=== PATIENT | male | born 1940 | race Caucasian/White ===

== ENCOUNTER → 2016-12-17 | Outpatient (REF) | payer MEDICARE ==
[~2016-12-17] MED LIST: /ADVA50050 IN; /GLYB5TA OR; /WARF2TA OR; ACET500C PO; ALBU2TAB INH; BISA10SU2 RE; CEFT250T OR; COLC1TAB13 PO; COUM2TAB10 PO; FEBU40TA PO; FLON0.05; GLYB5TA PO; INSUDET SC; INSULANT SC; INSULIN SQ; LEVO125T3 PO; LEVO150T9 PO; METF500T4 OR; MILKSUS OR; OMEP40CA2 PO; PAIN325T OR; PERC10TA17 PO; PRIL40CA OR; SIMV40TA2 OR; ZOCO40TA PO; coumadin; ocean nasal spray; omega 3 OR
[2016-12-17 12:55] LABS: ALBUMIN 3.5 GM/DL (3.2-5.2); ALBUMIN/GLOBULIN RATIO 0.9 (1.00-1.93); BILIRUBIN,TOTAL 0.6 MG/DL (0.2-1.0); CALCIUM LEVEL 9.2 MG/DL (8.8-10.2); CREATININE FOR GFR 2.03 MG/DL (0.70-1.30); GLOMERULAR FILTRATION RATE 34.1 (>42); POTASSIUM SERUM 4.9 MEQ/L (3.5-5.1); TOTAL PROTEIN 7.4 GM/DL (6.4-8.2)
== END ==
LOC: M SFHCPLAZ 09:53
PROVIDERS: ATTEND Internal Medicine
DX: E11.9 Type 2 diabetes mellitus without complications (principal); E78.00 Pure hypercholesterolemia, unspecified

== ENCOUNTER → 2017-02-07 | Outpatient (REF) | payer MEDICARE | LOC: M LAB REF 16:58 | PROVIDERS: ATTEND Internal Medicine Pulmonary Disease | DX: R05 Cough (principal) ==

== ENCOUNTER → 2017-02-22 | Outpatient (CLI) | payer MEDICARE ==
--- NOTE | 2017-02-22 13:12 | REP ---
Clinical: Chronic cough. Comparison: 01/09/2007. Findings: Progressive advanced COPD and emphysematous changes are appreciated in comparison to prior examination. Findings include moderate diffuse bronchiectasis, scattered scarring and interstitial changes, and diffuse primarily subpleural bullae varying in size from a small subcentimeter changes to a moderate to large bulla in the lateral right lower lobe measuring roughly 7.8 x 3.8 x 4.4 cm. No acute focal consolidation is appreciated a few scattered non solid ground-glass nodules measuring up to 6 mm likely represent chronic changes. No solid nodule or mass lesion identified. Atherosclerotic changes to the thoracic aorta and coronary arteries noted without aortic aneurysm or cardiomegaly. Subcentimeter mediastinal and hilar lymph nodes may be chronic/reactive in nature. No pleural effusion/reaction or pneumothorax. Surrounding musculoskeletal demonstrate age-related changes. Upper abdomen demonstrates atrophic left kidney and cholelithiasis. Impression: 1. Moderate to early advanced COPD and emphysematous changes with scattered fibrosis/scarring and bullae. 2. Small scattered non solid ground-glass densities up to approximately 6 mm are nonspecific and likely chronic. 3. No acute consolidation or significant mass lesion appreciated. No pleural effusion/reaction or pneumothorax. 4. Atherosclerotic changes of the aorta and coronary arteries. 5. Upper abdomen demonstrates atrophic left kidney and cholelithiasis. Signed by Jose Fung MD 02/22/2017 01:03 P
== END ==
LOC: M RAD 12:40
PROVIDERS: ATTEND Internal Medicine Pulmonary Disease
DX: R05 Cough (principal)

== ENCOUNTER → 2017-03-16 | Outpatient (REF) | payer MEDICARE ==
[2017-03-16 11:56] LABS: MEAN CORPUSCULAR HEMOGLOBIN 28.3 pg (27.0-33.0); MEAN CORPUSCULAR HGB CONC 31.6 g/dl (32.0-36.5); MEAN CORPUSCULAR VOLUME 89.5 fl (80.0-96.0); RED CELL DISTRIBUTION WIDTH 16.5 % (11.5-14.5); WHITE BLOOD COUNT 22.6 K/mm3 (4.0-10.0)
[2017-03-16 12:52] LABS: ALBUMIN 3.8 GM/DL (3.2-5.2); ALBUMIN/GLOBULIN RATIO 0.95 (1.00-1.93); BILIRUBIN,TOTAL 0.7 MG/DL (0.2-1.0); CREATININE FOR GFR 1.96 MG/DL (0.70-1.30); GLOMERULAR FILTRATION RATE 35.5 (>42); POTASSIUM SERUM 5.1 MEQ/L (3.5-5.1); TOTAL PROTEIN 7.8 GM/DL (6.4-8.2)
== END ==
LOC: M SFHCPLAZ 07:55
PROVIDERS: ATTEND Internal Medicine
DX: Z79.01 Long term (current) use of anticoagulants (principal); E11.9 Type 2 diabetes mellitus without complications; N18.3 Chronic kidney disease, stage 3 (moderate); E03.9 Hypothyroidism, unspecified

== ENCOUNTER → 2017-08-01 | Outpatient (REF) | payer MEDICARE ==
[~2017-08-01] MED LIST changes: -COUM2TAB10 PO; +COUM2TAB22 PO; -LEVO125T3 PO; +LEVO125T4 PO; -PERC10TA17 PO; +PERC10TA26 PO
[2017-08-01 13:46] LABS: BASO # 0.1 10^3/uL (0.0-0.2); BASO % 0.5 % (0.0-1.0); EOS # 1.2 10^3/uL (0.0-0.50); IMMATURE GRANULOCYTE % 2.5 % (0-0); LYMPH # 1.4 10^3/uL (1.5-4.5); LYMPH % 7.1 % (24.0-44.0); MEAN CORPUSCULAR HEMOGLOBIN 28.1 pg (27.0-33.0); MEAN CORPUSCULAR HGB CONC 31.7 g/dl (32.0-36.5); MEAN CORPUSCULAR VOLUME 88.5 fl (80.0-96.0); MONO # 0.5 10^3/uL (0.0-0.8); MONO % 2.5 % (0.0-5.0); NEUTROPHILS % 81.4 % (36.0-66.0); PLATELET COUNT, AUTOMATED 225 10^3/uL (150-450); RED CELL DISTRIBUTION WIDTH 17.2 % (11.5-14.5); WHITE BLOOD COUNT 19.6 10^3/uL (4.0-10.0)
[2017-08-01 14:01] LABS: ALBUMIN 3.5 GM/DL (3.2-5.2); ALBUMIN/GLOBULIN RATIO 0.95 (1.00-1.93); BILIRUBIN,TOTAL 0.5 MG/DL (0.2-1.0); CALCIUM LEVEL 8.7 MG/DL (8.8-10.2); CREATININE FOR GFR 2.05 MG/DL (0.70-1.30); GLOMERULAR FILTRATION RATE 33.6 (>42); POTASSIUM SERUM 4.5 MEQ/L (3.5-5.1); TOTAL PROTEIN 7.2 GM/DL (6.4-8.2)
== END ==
LOC: M SFHCPLAZ 09:44
PROVIDERS: ATTEND Internal Medicine
DX: N18.3 Chronic kidney disease, stage 3 (moderate) (principal); E11.9 Type 2 diabetes mellitus without complications

== ENCOUNTER → 2017-08-30 | Outpatient (CLI) | payer MEDICARE ==
--- NOTE | 2017-08-30 14:06 | REP ---
Clinical: Pain and lobular emphysema. Comparison: 02/22/2017. Findings: Diffuse chronic emphysematous changes and interstitial disease is again appreciated and remains stable. Previously identified small scattered non solid ground-glass opacities are essentially unchanged. There is a new 14 mm mass in the anterior left upper lobe (images 58 - 61) which is concerning for neoplasm. No further acute consolidation, significant nodule or mass lesion identified. Mediastinal and hilar lymph nodes remain unchanged. Atherosclerotic changes to the aorta and coronary arteries noted without aneurysm or cardiomegaly. No pericardial effusion. No pleural effusion. No pneumothorax. Musculoskeletal structures demonstrate degenerative changes without focal osseous abnormality. Upper abdomen demonstrates atrophic left kidney, normal bilateral adrenal glands, and evidence for prior cholecystectomy. Impression: 1. New 14 mm mass in the anterior left upper lobe is consistent with malignancy until proven otherwise. Consider PET-CT or tissue sampling as well as follow-up examination in 3 months if necessary. 2. Diffuse chronic stable interstitial and emphysematous changes. Signed by Jose Fung MD 08/30/2017 01:58 P
== END ==
LOC: M RAD 13:04
PROVIDERS: ATTEND Internal Medicine Pulmonary Disease
DX: R91.8 Other nonspecific abnormal finding of lung field (principal); J43.8 Other emphysema

== ENCOUNTER → 2017-12-06 | Outpatient (CLI) | payer MEDICARE | LOC: M RAD 13:17 | DX: R91.8 Other nonspecific abnormal finding of lung field (principal) | CPT/HCPCS: 71250 ==

== ENCOUNTER → 2018-03-21 | Outpatient (REF) | payer MEDICARE ==
[2018-03-21 11:38] LABS: ALBUMIN 3.3 GM/DL (3.2-5.2); ALKALINE PHOSPHATASE 71 U/L (45-117); ALT/SGPT 10 U/L (12-78); ANION GAP 13 MEQ/L (8-16); AST/SGOT 10 U/L (7-37); BILIRUBIN,TOTAL 0.6 MG/DL (0.2-1.0); BLOOD UREA NITROGEN 25 MG/DL (7-18); CALCIUM LEVEL 8.3 MG/DL (8.8-10.2); CARBON DIOXIDE LEVEL 26 MEQ/L (21-32); CHLORIDE LEVEL 102 MEQ/L (98-107); CHOLESTEROL LEVEL 142 MG/DL (<200); CHOLESTEROL RISK RATIO 6.454 (<5); CREATININE FOR GFR 1.87 MG/DL (0.70-1.30); GLOMERULAR FILTRATION RATE 37.4 (>42); GLUCOSE, FASTING 106 MG/DL (70-100); HDL CHOLESTEROL 22 MG/DL (>40); NON-HDL-C 120 MG/DL; POTASSIUM SERUM 4.5 MEQ/L (3.5-5.1); SODIUM LEVEL 141 MEQ/L (136-145); TOTAL PROTEIN 7.4 GM/DL (6.4-8.2); TRIGLYCERIDES LEVEL 195 MG/DL (<150)
[2018-03-21 11:56] LABS: MAU/CREAT RATIO 97.9 MCG/MG (0.0-30.0)
[2018-03-21 18:10] LABS: ESTIMATED AVERAGE GLUCOSE 197 MG/DL (60-110); HEMOGLOBIN A1c 8.5 %
== END ==
LOC: M SFHCPLAZ 07:48
DX: N18.3 Chronic kidney disease, stage 3 (moderate) (principal); E11.9 Type 2 diabetes mellitus without complications; E78.00 Pure hypercholesterolemia, unspecified
CPT/HCPCS: 80053

== ENCOUNTER → 2018-05-03 | Outpatient (REF) | payer MEDICARE ==
[2018-05-03 11:32] LABS: HEMATOCRIT 48.7 % (42.0-52.0); HEMOGLOBIN 15.7 g/dl (13.5-17.5); MEAN CORPUSCULAR HEMOGLOBIN 28.1 pg (27.0-33.0); MEAN CORPUSCULAR HGB CONC 32.2 g/dl (32.0-36.5); MEAN CORPUSCULAR VOLUME 87.3 fl (80.0-96.0); PLATELET COUNT, AUTOMATED 213 10^3/uL (150-450); RED BLOOD COUNT 5.58 10^6/uL (4.30-6.10); RED CELL DISTRIBUTION WIDTH 17.4 % (11.5-14.5); WHITE BLOOD COUNT 20.1 10^3/uL (4.0-10.0)
[2018-05-03 11:59] LABS: PTH INTACT 43.2 PG/ML (18.5-88.0)
[2018-05-03 12:00] LABS: ALBUMIN/GLOBULIN RATIO 0.81 (1.00-1.93); ALKALINE PHOSPHATASE 65 U/L (45-117); ALT/SGPT 15 U/L (12-78); ANION GAP 9 MEQ/L (8-16); AST/SGOT 9 U/L (7-37); BILIRUBIN,TOTAL 0.6 MG/DL (0.2-1.0); BLOOD UREA NITROGEN 26 MG/DL (7-18); CALCIUM LEVEL 8.5 MG/DL (8.8-10.2); CARBON DIOXIDE LEVEL 29 MEQ/L (21-32); CHLORIDE LEVEL 101 MEQ/L (98-107); CHOLESTEROL LEVEL 147 MG/DL (<200); CHOLESTEROL RISK RATIO 5.444 (<5); CREATININE FOR GFR 1.54 MG/DL (0.70-1.30); GLOMERULAR FILTRATION RATE 46.7 (>42); GLUCOSE, FASTING 190 MG/DL (70-100); HDL CHOLESTEROL 27 MG/DL (>40); LDL CHOLESTEROL 83.2 MG/DL (<100); NON-HDL-C 120 MG/DL; POTASSIUM SERUM 4.7 MEQ/L (3.5-5.1); SODIUM LEVEL 139 MEQ/L (136-145); TOTAL PROTEIN 6.7 GM/DL (6.4-8.2); TRIGLYCERIDES LEVEL 184 MG/DL (<150); URIC ACID 2.8 MG/DL (3.5-7.2)
[2018-05-03 12:09] LABS: MAU/CREAT RATIO 102.3 MCG/MG (0.0-30.0)
== END ==
LOC: M SFHCPLAZ 08:57
DX: N18.3 Chronic kidney disease, stage 3 (moderate) (principal); D72.828 Other elevated white blood cell count; E78.00 Pure hypercholesterolemia, unspecified; E03.9 Hypothyroidism, unspecified; E11.8 Type 2 diabetes mellitus with unspecified complications; M10.9 Gout, unspecified; M25.532 Pain in left wrist
CPT/HCPCS: 84443

== ENCOUNTER → 2018-05-18 | Outpatient (CLI) | payer MEDICARE | LOC: M WUC 09:06 | DX: R91.8 Other nonspecific abnormal finding of lung field (principal) | CPT/HCPCS: 71046 ==

== ENCOUNTER 2018-05-31 11:05 | Inpatient (IN) | payer MEDICARE ==
[2018-05-31] MEDS: methylPREDNISolone INJ 125 MG/2 ML VIAL (J2930) IV (11:48)
[2018-05-31 11:59] LABS: HEMATOCRIT 46.8 % (42.0-52.0); HEMOGLOBIN 14.4 g/dl (13.5-17.5); MEAN CORPUSCULAR HEMOGLOBIN 27.7 pg (27.0-33.0); MEAN CORPUSCULAR HGB CONC 30.8 g/dl (32.0-36.5); PLATELET COUNT, AUTOMATED 222 10^3/uL (150-450); RED CELL DISTRIBUTION WIDTH 18.1 % (11.5-14.5); WHITE BLOOD COUNT 20.4 10^3/uL (4.0-10.0)
[2018-05-31 12:06] LABS: ADD MANUAL DIFFER YES; DIFF SLIDE NUMBER 205; POS COUNT POS FLAG; POSITIVE MORPH POS FLAG
[2018-05-31 12:12] LABS: ABG BASE EXCESS 1.6 (-2.0-2.0); ABG HCO3 27.6 MEQ/L (22.0-26.0); ABG O2 SATURATION 98.9 % (95.0-99.0); ABG PARTIAL PRESSURE O2 134.3 mmHg (75.0-100.0); ABG STANDARD HCO3 25.9 MEQ/L (22.0-26.0); ABG TOTAL CO2 29.1 MEQ/L (23.0-31.0); ABG pH (ARTERIAL) 7.369 UNITS (7.350-7.450)
[2018-05-31 12:26] LABS: ATYPICAL LYMPH 1 % (0-5); BANDS 5 % (< 11); BASOPHILS 1 % (0-4); EOSINOPHILS 1 % (0-5); LYMPHOCYTES 4 % (16-52); METAMYELOCYTES 1 % (0-0); MONOCYTES 2 % (0-8); NEUTROPHILS 85 % (35-75)
[2018-05-31 12:27] LABS: ANION GAP 8 MEQ/L (8-16); BLOOD UREA NITROGEN 51 MG/DL (7-18); CALCIUM LEVEL 8.8 MG/DL (8.8-10.2); CARBON DIOXIDE LEVEL 33 MEQ/L (21-32); CHLORIDE LEVEL 103 MEQ/L (98-107); CPK CREATINE PHOSPHOKINASE 32 U/L (39-308); GLOMERULAR FILTRATION RATE 34.5 (>42); GLUCOSE, FASTING 169 MG/DL (70-100); POTASSIUM SERUM 4.7 MEQ/L (3.5-5.1); SODIUM LEVEL 144 MEQ/L (136-145); TROPONIN I 0.07 NG/ML (< 0.10)
[2018-05-31 12:28] LABS: PLATELET ESTIMATE NORMAL (NORMAL); POLYCHROMASIA 1+
[2018-05-31 12:29] LABS: LACTIC ACID SEPSIS PROTOCOL 1.8 MMOL/L (0.4-2.0)
[2018-05-31 12:30] LABS: CK-MB VALUE MASS 1.8 NG/ML (<3.6); MB/CK RELATIVE INDEX 5.62 (< OR =4); NT-PRO BNP 34171 PG/ML (<450)
[2018-05-31 12:40] LABS: INR 4.93; PROTHROMBIN TIME 47.2 SECONDS (12.1-14.4)
[2018-05-31] MEDS: FUROSEMIDE 40 MG/4 ML VIAL (J1940) IV (13:23)
[2018-05-31] MEDS ORDERED: ONDANSETRON 4MG/2ML VIAL (J2405) IV (13:30)
[2018-05-31] MEDS ORDERED: BISACODYL 5 MG TAB PO (13:30)
[2018-05-31] MEDS: IPRATROPIUM 0.5MG/ALBUTEROL 2.5MG INH SOL UD 3ML (DUONEB)(J7620) NEB (14:00)
[2018-05-31] MEDS ORDERED: ACETAMINOPHEN TAB 650MG DOSE (2X325MG) PO (14:30)
[2018-05-31] MEDS ORDERED: GLUCOSE 4 GM CHEW TABLET PO (14:45)
[2018-05-31] MEDS ORDERED: IPRATROPIUM 0.5MG/ALBUTEROL 2.5MG INH SOL UD 3ML (DUONEB)(J7620) NEB (14:45)
[2018-05-31] MEDS ORDERED: GLUCAGON FOR INJ 1 MG VIAL (J1610) SC (14:45)
[2018-05-31] MEDS ORDERED: DEXTROSE 50% 50 ML SYRINGE IV (14:45)
[2018-05-31] MEDS ORDERED: FUROSEMIDE 40 MG TAB PO (17:00)
[2018-05-31 17:59] LABS: BEDSIDE GLUCOSE 331 MG/DL (83-110)
[2018-05-31] MEDS: HumaLOG INSULIN (NovoLOG) PER UNIT SC ×2 (18:10→21:00)
[2018-05-31 18:57] LABS: CPK CREATINE PHOSPHOKINASE 30 U/L (39-308); TROPONIN I 0.06 NG/ML (< 0.10)
[2018-05-31 18:58] LABS: CK-MB VALUE MASS 1.7 NG/ML (<3.6); MB/CK RELATIVE INDEX 5.66 (< OR =4)
[2018-05-31] MEDS: ALBUTEROL SULFATE 2.5 MG/0.5 ML INH NEB SOLN NEB (20:00)
[2018-05-31] MEDS: METOPROLOL SUCC *XL* 12.5MG PER 1/2 TAB (TopROL *XL*) PO ×2 (20:37→21:00)
[2018-05-31 20:41] LABS: BEDSIDE GLUCOSE 246 MG/DL (83-110)
[2018-05-31] MEDS: SYMBICORT 80/4.5MCG INHALER 6GM INH (20:58)
[2018-05-31] MEDS: SENOKOT S TAB PO (21:36)
[2018-05-31] MEDS: SIMVASTATIN 40 MG TAB PO (21:36)
[2018-05-31] MEDS: LEVEMIR (INSULIN DETEMIR) 1 UNITS/0.01ML SC (21:37)
[2018-06-01] MEDS: ALBUTEROL SULFATE 2.5 MG/0.5 ML INH NEB SOLN NEB ×4 (02:00→20:00)
[2018-06-01 02:32] LABS: CPK CREATINE PHOSPHOKINASE 25 U/L (39-308); TROPONIN I 0.06 NG/ML (< 0.10)
[2018-06-01 02:33] LABS: CK-MB VALUE MASS 1.5 NG/ML (<3.6)
[2018-06-01] MEDS: LEVOTHYROXINE 125MCG TABLET (0.125MG) PO (05:37)
[2018-06-01 05:46] LABS: BASO # 0.1 10^3/uL (0.0-0.2); BASO % 0.8 % (0.0-1.0); HEMATOCRIT 44.4 % (42.0-52.0); HEMOGLOBIN 13.8 g/dl (13.5-17.5); LYMPH # 0.6 10^3/uL (1.5-4.5); LYMPH % 3.7 % (24.0-44.0); MEAN CORPUSCULAR HEMOGLOBIN 27.7 pg (27.0-33.0); MEAN CORPUSCULAR HGB CONC 31.1 g/dl (32.0-36.5); MONO # 0.5 10^3/uL (0.0-0.8); NEUTROPHILS # 13.7 10^3/uL (1.8-7.7); NEUTROPHILS % 87.5 % (36.0-66.0); PLATELET COUNT, AUTOMATED 210 10^3/uL (150-450); RED BLOOD COUNT 4.99 10^6/uL (4.30-6.10); RED CELL DISTRIBUTION WIDTH 17.4 % (11.5-14.5); WHITE BLOOD COUNT 15.7 10^3/uL (4.0-10.0)
[2018-06-01 05:57] LABS: INR 4.16; PROTHROMBIN TIME 41.2 SECONDS (12.1-14.4)
[2018-06-01 06:16] LABS: ABG BASE EXCESS 2.2 (-2.0-2.0); ABG HCO3 29.7 MEQ/L (22.0-26.0); ABG O2 SATURATION 98.5 % (95.0-99.0); ABG PARTIAL PRESSURE CO2 58.6 mmHg (35.0-45.0); ABG PARTIAL PRESSURE O2 126.5 mmHg (75.0-100.0); ABG STANDARD HCO3 26.5 MEQ/L (22.0-26.0); ABG TOTAL CO2 31.5 MEQ/L (23.0-31.0); ABG pH (ARTERIAL) 7.323 UNITS (7.350-7.450); ALBUMIN 2.7 GM/DL (3.2-5.2); ALBUMIN/GLOBULIN RATIO 0.66 (1.00-1.93); ALKALINE PHOSPHATASE 84 U/L (45-117); ALT/SGPT 29 U/L (12-78); ANION GAP 8 MEQ/L (8-16); AST/SGOT 14 U/L (7-37); BILIRUBIN,TOTAL 0.5 MG/DL (0.2-1.0); BLOOD UREA NITROGEN 59 MG/DL (7-18); CALCIUM LEVEL 8.3 MG/DL (8.8-10.2); CARBON DIOXIDE LEVEL 32 MEQ/L (21-32); CHLORIDE LEVEL 101 MEQ/L (98-107); CREATININE FOR GFR 2.27 MG/DL (0.70-1.30); GLOMERULAR FILTRATION RATE 29.8 (>42); GLUCOSE, FASTING 258 MG/DL (70-100); MAGNESIUM LEVEL 2.4 MG/DL (1.8-2.4); POTASSIUM SERUM 4.8 MEQ/L (3.5-5.1); SODIUM LEVEL 141 MEQ/L (136-145); TOTAL PROTEIN 6.8 GM/DL (6.4-8.2)
[2018-06-01] MEDS: SYMBICORT 80/4.5MCG INHALER 6GM INH ×2 (07:59→21:52)
[2018-06-01] MEDS: HumaLOG INSULIN (NovoLOG) PER UNIT SC ×4 (08:06→21:35)
[2018-06-01] MEDS: FUROSEMIDE 40 MG/4 ML VIAL (J1940) IV ×2 (10:08→16:46)
[2018-06-01] MEDS: ALLOPURINOL 300 MG TAB PO (10:09)
[2018-06-01] MEDS: OMEPRAZOLE 20 MG CAP PO (10:09)
[2018-06-01] MEDS: SENOKOT S TAB PO ×2 (10:09→21:00)
[2018-06-01] MEDS ORDERED: PILL CRUSHER/CUTTER 1 EACH XX (10:30)
[2018-06-01 11:29] LABS: CPK CREATINE PHOSPHOKINASE 31 U/L (39-308); TROPONIN I 0.06 NG/ML (< 0.10)
[2018-06-01 11:54] LABS: CK-MB VALUE MASS 1.9 NG/ML (<3.6); MB/CK RELATIVE INDEX 6.12 (< OR =4)
[2018-06-01 11:57] LABS: BEDSIDE GLUCOSE 117 MG/DL (83-110)
[2018-06-01] MEDS: SLF 3 ML SYR IV ×3 (14:22→21:35)
[2018-06-01] MEDS: METOPROLOL TART 12.5 MG PER 1/2 TAB PO (14:26)
[2018-06-01] MEDS: AZITHROMYCIN INJ 500 MG, VIAL MATE ADAPTER 1 EACH in D5W 250 ML IV (16:46)
[2018-06-01] MEDS ORDERED: LEVALBUTEROL 1.25 MG/0.5 ML CONCENTRATE NEB INH (17:00)
[2018-06-01 17:05] LABS: BEDSIDE GLUCOSE 77 MG/DL (83-110)
[2018-06-01] MEDS: cefTRIAXone SOD 1 GM in D5W MINI-BAG PLUS 50 ML IV (18:30)
[2018-06-01 20:08] LABS: BEDSIDE GLUCOSE 251 MG/DL (83-110)
[2018-06-01] MEDS: LEVEMIR (INSULIN DETEMIR) 1 UNITS/0.01ML SC (21:35)
[2018-06-01] MEDS: SIMVASTATIN 40 MG TAB PO (21:35)
[2018-06-01] MEDS: DIGOXIN INJ 0.5 MG/2 ML AMP (J1160) IV (23:12)
[2018-06-01] MEDS: methylPREDNISolone INJ 125 MG/2 ML VIAL (J2930) IV (23:49)
[2018-06-02] MEDS: ALBUTEROL SULFATE 2.5 MG/0.5 ML INH NEB SOLN NEB ×4 (01:29→20:00)
[2018-06-02] MEDS: cefTRIAXone SOD 1 GM in D5W MINI-BAG PLUS 50 ML IV ×2 (05:06→17:23)
[2018-06-02] MEDS: DIGOXIN INJ 0.5 MG/2 ML AMP (J1160) IV ×2 (05:07→13:02)
[2018-06-02] MEDS: LEVOTHYROXINE 125MCG TABLET (0.125MG) PO (05:07)
[2018-06-02] MEDS: SLF 3 ML SYR IV ×3 (05:14→22:38)
[2018-06-02 05:55] LABS: BASO # 0.1 10^3/uL (0.0-0.2); BASO % 0.5 % (0.0-1.0); EOS % 0.1 % (0.0-3.0); HEMATOCRIT 42.9 % (42.0-52.0); HEMOGLOBIN 13.2 g/dl (13.5-17.5); IMMATURE GRANULOCYTE % 3.4 % (0-3.0); LYMPH # 0.4 10^3/uL (1.5-4.5); LYMPH % 1.6 % (24.0-44.0); MEAN CORPUSCULAR HEMOGLOBIN 27.3 pg (27.0-33.0); MEAN CORPUSCULAR HGB CONC 30.8 g/dl (32.0-36.5); MEAN CORPUSCULAR VOLUME 88.8 fl (80.0-96.0); MONO # 0.2 10^3/uL (0.0-0.8); MONO % 0.9 % (0.0-5.0); NEUTROPHILS # 24.2 10^3/uL (1.8-7.7); NEUTROPHILS % 93.5 % (36.0-66.0); PLATELET COUNT, AUTOMATED 170 10^3/uL (150-450); RED BLOOD COUNT 4.83 10^6/uL (4.30-6.10); RED CELL DISTRIBUTION WIDTH 17.2 % (11.5-14.5); WHITE BLOOD COUNT 25.9 10^3/uL (4.0-10.0)
[2018-06-02 06:06] LABS: INR 3.09; PROTHROMBIN TIME 32.6 SECONDS (12.1-14.4)
[2018-06-02 06:07] LABS: ANION GAP 7 MEQ/L (8-16); BLOOD UREA NITROGEN 61 MG/DL (7-18); CALCIUM LEVEL 7.8 MG/DL (8.8-10.2); CARBON DIOXIDE LEVEL 34 MEQ/L (21-32); CHLORIDE LEVEL 96 MEQ/L (98-107); GLOMERULAR FILTRATION RATE 29.3 (>42); GLUCOSE, FASTING 221 MG/DL (70-100); POTASSIUM SERUM 4.4 MEQ/L (3.5-5.1); SODIUM LEVEL 137 MEQ/L (136-145)
[2018-06-02 07:46] LABS: C REACTIVE PROTEIN QUANTITATIV 1.95 MG/DL (0.00-0.30)
[2018-06-02] MEDS: SYMBICORT 80/4.5MCG INHALER 6GM INH ×2 (08:00→21:52)
[2018-06-02] MEDS: SENOKOT S TAB PO ×2 (08:10→20:18)
[2018-06-02] MEDS: ALLOPURINOL 300 MG TAB PO (08:10)
[2018-06-02] MEDS: FUROSEMIDE 40 MG/4 ML VIAL (J1940) IV ×2 (08:10→17:22)
[2018-06-02] MEDS: OMEPRAZOLE 20 MG CAP PO (08:10)
[2018-06-02] MEDS: HumaLOG INSULIN (NovoLOG) PER UNIT SC ×4 (08:11→20:43)
[2018-06-02 12:35] LABS: BEDSIDE GLUCOSE 381 MG/DL (83-110)
[2018-06-02] MEDS: methylPREDNISolone INJ 125 MG/2 ML VIAL (J2930) IV ×2 (13:02→23:43)
[2018-06-02 14:55] LABS: ERYTHROCYTE SEDIMENTATION RATE 6 mm/hr (0-20)
[2018-06-02] MEDS: AZITHROMYCIN INJ 500 MG, VIAL MATE ADAPTER 1 EACH in D5W 250 ML IV (17:22)
[2018-06-02] MEDS: WARFARIN SOD 2 MG TAB PO (17:23)
[2018-06-02] MEDS: SIMVASTATIN 40 MG TAB PO (20:18)
[2018-06-02] MEDS: LEVEMIR (INSULIN DETEMIR) 1 UNITS/0.01ML SC (20:42)
[2018-06-02 21:20] LABS: BEDSIDE GLUCOSE 355 MG/DL (83-110)
[2018-06-02] MEDS: DOBUTamine HCL 500,000 MCG in APPROPRIATE DILUENT 1 EA IV (23:44)
[2018-06-03] MEDS: ALBUTEROL SULFATE 2.5 MG/0.5 ML INH NEB SOLN NEB ×4 (01:14→20:52)
[2018-06-03] MEDS: cefTRIAXone SOD 1 GM in D5W MINI-BAG PLUS 50 ML IV ×2 (04:18→17:08)
[2018-06-03] MEDS: SLF 3 ML SYR IV ×3 (05:05→22:14)
[2018-06-03] MEDS: LEVOTHYROXINE 125MCG TABLET (0.125MG) PO (05:07)
[2018-06-03 06:16] LABS: BASO # 0.1 10^3/uL (0.0-0.2); BASO % 0.3 % (0.0-1.0); HEMATOCRIT 40.4 % (42.0-52.0); IMMATURE GRANULOCYTE % 3.8 % (0-3.0); LYMPH # 0.3 10^3/uL (1.5-4.5); LYMPH % 1.5 % (24.0-44.0); MEAN CORPUSCULAR HEMOGLOBIN 27.5 pg (27.0-33.0); MEAN CORPUSCULAR HGB CONC 32.2 g/dl (32.0-36.5); MEAN CORPUSCULAR VOLUME 85.6 fl (80.0-96.0); MONO # 0.2 10^3/uL (0.0-0.8); MONO % 0.9 % (0.0-5.0); NEUTROPHILS # 19.9 10^3/uL (1.8-7.7); NEUTROPHILS % 93.5 % (36.0-66.0); PLATELET COUNT, AUTOMATED 158 10^3/uL (150-450); RED BLOOD COUNT 4.72 10^6/uL (4.30-6.10); RED CELL DISTRIBUTION WIDTH 16.3 % (11.5-14.5); WHITE BLOOD COUNT 21.4 10^3/uL (4.0-10.0)
[2018-06-03] MEDS: ISOSORBIDE DIN (ISORDIL) 10 MG TAB PO (06:26)
[2018-06-03 06:30] LABS: INR 3.28; PROTHROMBIN TIME 34.1 SECONDS (12.1-14.4)
[2018-06-03 06:33] LABS: ANION GAP 7 MEQ/L (8-16); BLOOD UREA NITROGEN 56 MG/DL (7-18); CALCIUM LEVEL 7.6 MG/DL (8.8-10.2); CARBON DIOXIDE LEVEL 37 MEQ/L (21-32); CHLORIDE LEVEL 93 MEQ/L (98-107); CREATININE FOR GFR 1.85 MG/DL (0.70-1.30); GLOMERULAR FILTRATION RATE 37.7 (>42); GLUCOSE, FASTING 259 MG/DL (70-100); SODIUM LEVEL 137 MEQ/L (136-145)
[2018-06-03] MEDS: HumaLOG INSULIN (NovoLOG) PER UNIT SC ×4 (09:03→22:13)
[2018-06-03] MEDS: SPIRONOLACTONE 12.5MG PER 1/2 TABLET PO (09:04)
[2018-06-03] MEDS: ALLOPURINOL 300 MG TAB PO (09:04)
[2018-06-03] MEDS: OMEPRAZOLE 20 MG CAP PO (09:04)
[2018-06-03] MEDS: SENOKOT S TAB PO ×2 (09:05→21:59)
[2018-06-03] MEDS: **hydrALAZINE** 10 MG TAB PO (09:05)
[2018-06-03] MEDS: SYMBICORT 80/4.5MCG INHALER 6GM INH ×2 (11:50→20:51)
[2018-06-03 12:18] LABS: BEDSIDE GLUCOSE 257 MG/DL (83-110)
[2018-06-03] MEDS: methylPREDNISolone INJ 125 MG/2 ML VIAL (J2930) IV (12:34)
[2018-06-03] MEDS: BISOPROLOL FUMARATE 1.25MG PER 1/4 TABLET PO (12:44)
[2018-06-03] MEDS: ENTRESTO 24-26MG TABLET (SACUBITRIL/VALSARTAN) PO ×2 (12:44→21:59)
[2018-06-03] MEDS: AZITHROMYCIN INJ 500 MG, VIAL MATE ADAPTER 1 EACH in D5W 250 ML IV (16:01)
[2018-06-03 17:14] LABS: MAGNESIUM LEVEL 2.1 MG/DL (1.8-2.4)
[2018-06-03 17:20] LABS: BEDSIDE GLUCOSE 317 MG/DL (83-110)
[2018-06-03] MEDS: WARFARIN SOD 2 MG TAB PO (17:32)
[2018-06-03] MEDS: SIMVASTATIN 40 MG TAB PO (21:59)
[2018-06-03] MEDS: LEVEMIR (INSULIN DETEMIR) 1 UNITS/0.01ML SC (22:05)
[2018-06-03 22:23] LABS: BEDSIDE GLUCOSE 378 MG/DL (83-110)
[2018-06-03 22:43] LABS: CHOLESTEROL LEVEL 109 MG/DL (<200); CHOLESTEROL RISK RATIO 3.758 (<5); HDL CHOLESTEROL 29 MG/DL (>40); LDL CHOLESTEROL 39.6 MG/DL (<100); NON-HDL-C 80 MG/DL; TRIGLYCERIDES LEVEL 202 MG/DL (<150)
[2018-06-04] MEDS: ALBUTEROL SULFATE 2.5 MG/0.5 ML INH NEB SOLN NEB ×4 (02:08→20:00)
[2018-06-04] MEDS: cefTRIAXone SOD 1 GM in D5W MINI-BAG PLUS 50 ML IV ×2 (04:34→17:52)
[2018-06-04] MEDS: LEVOTHYROXINE 125MCG TABLET (0.125MG) PO (05:19)
[2018-06-04] MEDS: SLF 3 ML SYR IV ×3 (05:20→21:28)
[2018-06-04 05:45] LABS: BASO # 0.1 10^3/uL (0.0-0.2); BASO % 0.6 % (0.0-1.0); EOS % 0.1 % (0.0-3.0); HEMOGLOBIN 13.2 g/dl (13.5-17.5); IMMATURE GRANULOCYTE % 4.1 % (0-3.0); LYMPH # 0.7 10^3/uL (1.5-4.5); LYMPH % 3.6 % (24.0-44.0); MEAN CORPUSCULAR HEMOGLOBIN 27.6 pg (27.0-33.0); MEAN CORPUSCULAR HGB CONC 31.4 g/dl (32.0-36.5); MEAN CORPUSCULAR VOLUME 87.7 fl (80.0-96.0); MONO # 0.5 10^3/uL (0.0-0.8); MONO % 2.6 % (0.0-5.0); NEUTROPHILS # 18.2 10^3/uL (1.8-7.7); PLATELET COUNT, AUTOMATED 152 10^3/uL (150-450); RED BLOOD COUNT 4.79 10^6/uL (4.30-6.10); RED CELL DISTRIBUTION WIDTH 16.7 % (11.5-14.5); WHITE BLOOD COUNT 20.5 10^3/uL (4.0-10.0)
[2018-06-04 05:58] LABS: ANION GAP 7 MEQ/L (8-16); BLOOD UREA NITROGEN 58 MG/DL (7-18); CALCIUM LEVEL 7.9 MG/DL (8.8-10.2); CARBON DIOXIDE LEVEL 35 MEQ/L (21-32); CHLORIDE LEVEL 93 MEQ/L (98-107); CREATININE FOR GFR 1.76 MG/DL (0.70-1.30); GLUCOSE, FASTING 284 MG/DL (70-100); POTASSIUM SERUM 3.9 MEQ/L (3.5-5.1); SODIUM LEVEL 135 MEQ/L (136-145)
[2018-06-04] MEDS: HumaLOG INSULIN (NovoLOG) PER UNIT SC ×4 (08:15→21:27)
[2018-06-04] MEDS: ENTRESTO 24-26MG TABLET (SACUBITRIL/VALSARTAN) PO ×2 (08:16→21:26)
[2018-06-04] MEDS: OMEPRAZOLE 20 MG CAP PO (08:16)
[2018-06-04] MEDS: BISOPROLOL FUMARATE 1.25MG PER 1/4 TABLET PO (08:16)
[2018-06-04] MEDS: ALLOPURINOL 300 MG TAB PO (08:16)
[2018-06-04] MEDS: SENOKOT S TAB PO ×2 (08:16→21:26)
[2018-06-04] MEDS: SYMBICORT 80/4.5MCG INHALER 6GM INH ×2 (08:32→20:31)
[2018-06-04 12:16] LABS: INR 3.63
[2018-06-04 12:40] LABS: BEDSIDE GLUCOSE 269 MG/DL (83-110)
[2018-06-04] MEDS: AZITHROMYCIN INJ 500 MG, VIAL MATE ADAPTER 1 EACH in D5W 250 ML IV (17:00)
[2018-06-04 17:18] LABS: BEDSIDE GLUCOSE 198 MG/DL (83-110)
[2018-06-04] MEDS: SIMVASTATIN 40 MG TAB PO (21:26)
[2018-06-04] MEDS: LEVEMIR (INSULIN DETEMIR) 1 UNITS/0.01ML SC (21:27)
[2018-06-04 22:51] LABS: BEDSIDE GLUCOSE 315 MG/DL (83-110)
[2018-06-05] MEDS: ALBUTEROL SULFATE 2.5 MG/0.5 ML INH NEB SOLN NEB ×4 (02:00→20:00)
[2018-06-05] MEDS: cefTRIAXone SOD 1 GM in D5W MINI-BAG PLUS 50 ML IV ×2 (04:34→17:43)
[2018-06-05] MEDS: LEVOTHYROXINE 125MCG TABLET (0.125MG) PO (05:49)
[2018-06-05] MEDS: SLF 3 ML SYR IV ×3 (06:02→21:54)
[2018-06-05 06:14] LABS: BASO # 0.1 10^3/uL (0.0-0.2); BASO % 0.6 % (0.0-1.0); EOS # 1.1 10^3/uL (0.0-0.50); EOS % 5.6 % (0.0-3.0); HEMATOCRIT 43.9 % (42.0-52.0); HEMOGLOBIN 13.8 g/dl (13.5-17.5); IMMATURE GRANULOCYTE % 4.8 % (0-3.0); LYMPH # 1.2 10^3/uL (1.5-4.5); LYMPH % 6.1 % (24.0-44.0); MEAN CORPUSCULAR HEMOGLOBIN 27.4 pg (27.0-33.0); MEAN CORPUSCULAR HGB CONC 31.4 g/dl (32.0-36.5); MEAN CORPUSCULAR VOLUME 87.1 fl (80.0-96.0); MONO # 0.4 10^3/uL (0.0-0.8); MONO % 2.2 % (0.0-5.0); NEUTROPHILS # 15.6 10^3/uL (1.8-7.7); NEUTROPHILS % 80.7 % (36.0-66.0); PLATELET COUNT, AUTOMATED 143 10^3/uL (150-450); RED BLOOD COUNT 5.04 10^6/uL (4.30-6.10); RED CELL DISTRIBUTION WIDTH 17.2 % (11.5-14.5); WHITE BLOOD COUNT 19.3 10^3/uL (4.0-10.0)
[2018-06-05 06:17] LABS: INR 3.51
[2018-06-05 06:24] LABS: ANION GAP 3 MEQ/L (8-16); BLOOD UREA NITROGEN 57 MG/DL (7-18); CALCIUM LEVEL 7.9 MG/DL (8.8-10.2); CARBON DIOXIDE LEVEL 38 MEQ/L (21-32); CHLORIDE LEVEL 95 MEQ/L (98-107); CREATININE FOR GFR 1.56 MG/DL (0.70-1.30); GLOMERULAR FILTRATION RATE 45.9 (>42); GLUCOSE, FASTING 235 MG/DL (70-100); POTASSIUM SERUM 3.8 MEQ/L (3.5-5.1); SODIUM LEVEL 136 MEQ/L (136-145)
[2018-06-05 06:36] LABS: NT-PRO BNP 4353 PG/ML (<450)
[2018-06-05] MEDS: HumaLOG INSULIN (NovoLOG) PER UNIT SC ×4 (08:14→21:00)
[2018-06-05] MEDS: OMEPRAZOLE 20 MG CAP PO (08:14)
[2018-06-05] MEDS: SENOKOT S TAB PO ×2 (08:15→21:54)
[2018-06-05] MEDS: BISOPROLOL FUMARATE 1.25MG PER 1/4 TABLET PO (08:15)
[2018-06-05] MEDS: ENTRESTO 24-26MG TABLET (SACUBITRIL/VALSARTAN) PO ×2 (08:15→21:54)
[2018-06-05] MEDS: ALLOPURINOL 300 MG TAB PO (08:15)
[2018-06-05] MEDS: SYMBICORT 80/4.5MCG INHALER 6GM INH ×2 (10:09→20:14)
[2018-06-05 11:46] LABS: BEDSIDE GLUCOSE 237 MG/DL (83-110)
[2018-06-05] MEDS: AZITHROMYCIN INJ 500 MG, VIAL MATE ADAPTER 1 EACH in D5W 250 ML IV (16:32)
[2018-06-05 16:53] LABS: BEDSIDE GLUCOSE 248 MG/DL (83-110)
[2018-06-05 20:40] LABS: BEDSIDE GLUCOSE 218 MG/DL (83-110)
[2018-06-05] MEDS: SIMVASTATIN 40 MG TAB PO (21:54)
[2018-06-05] MEDS: LEVEMIR (INSULIN DETEMIR) 1 UNITS/0.01ML SC (21:54)
[2018-06-06] MEDS: ALBUTEROL SULFATE 2.5 MG/0.5 ML INH NEB SOLN NEB ×4 (02:00→20:00)
[2018-06-06] MEDS: LEVOTHYROXINE 125MCG TABLET (0.125MG) PO (05:06)
[2018-06-06] MEDS: cefTRIAXone SOD 1 GM in D5W MINI-BAG PLUS 50 ML IV (05:06)
[2018-06-06] MEDS: SLF 3 ML SYR IV ×3 (05:09→20:28)
[2018-06-06 05:41] LABS: BASO # 0.2 10^3/uL (0.0-0.2); BASO % 0.8 % (0.0-1.0); EOS # 1.4 10^3/uL (0.0-0.50); EOS % 6.4 % (0.0-3.0); HEMATOCRIT 43.7 % (42.0-52.0); HEMOGLOBIN 13.6 g/dl (13.5-17.5); IMMATURE GRANULOCYTE % 4.8 % (0-3.0); LYMPH # 1.1 10^3/uL (1.5-4.5); LYMPH % 5.2 % (24.0-44.0); MEAN CORPUSCULAR HEMOGLOBIN 27.7 pg (27.0-33.0); MEAN CORPUSCULAR HGB CONC 31.1 g/dl (32.0-36.5); MONO # 0.5 10^3/uL (0.0-0.8); MONO % 2.3 % (0.0-5.0); NEUTROPHILS # 17.5 10^3/uL (1.8-7.7); NEUTROPHILS % 80.5 % (36.0-66.0); PLATELET COUNT, AUTOMATED 124 10^3/uL (150-450); RED BLOOD COUNT 4.91 10^6/uL (4.30-6.10); RED CELL DISTRIBUTION WIDTH 17.3 % (11.5-14.5); WHITE BLOOD COUNT 21.8 10^3/uL (4.0-10.0)
[2018-06-06 05:51] LABS: INR 2.74; PROTHROMBIN TIME 29.6 SECONDS (12.1-14.4)
[2018-06-06 06:12] LABS: ANION GAP 5 MEQ/L (8-16); BLOOD UREA NITROGEN 55 MG/DL (7-18); CARBON DIOXIDE LEVEL 36 MEQ/L (21-32); CHLORIDE LEVEL 96 MEQ/L (98-107); CREATININE FOR GFR 1.42 MG/DL (0.70-1.30); GLOMERULAR FILTRATION RATE 51.2 (>42); GLUCOSE, FASTING 171 MG/DL (70-100); SODIUM LEVEL 137 MEQ/L (136-145)
[2018-06-06] MEDS: SYMBICORT 80/4.5MCG INHALER 6GM INH ×2 (07:09→20:14)
[2018-06-06] MEDS: SENOKOT S TAB PO ×2 (08:03→20:27)
[2018-06-06] MEDS: HumaLOG INSULIN (NovoLOG) PER UNIT SC ×4 (08:03→20:28)
[2018-06-06] MEDS: ALLOPURINOL 300 MG TAB PO (08:03)
[2018-06-06] MEDS: OMEPRAZOLE 20 MG CAP PO (08:03)
[2018-06-06] MEDS: BISOPROLOL FUM 2.5 MG PER 1/2TAB PO (09:00)
[2018-06-06] MEDS: ENTRESTO 24-26MG TABLET (SACUBITRIL/VALSARTAN) PO ×2 (09:00→20:27)
[2018-06-06 11:42] LABS: BEDSIDE GLUCOSE 135 MG/DL (83-110)
[2018-06-06 16:40] LABS: BEDSIDE GLUCOSE 338 MG/DL (83-110)
[2018-06-06] MEDS: WARFARIN SOD 2 MG TAB PO (17:09)
[2018-06-06 20:17] LABS: BEDSIDE GLUCOSE 258 MG/DL (83-110)
[2018-06-06] MEDS: SIMVASTATIN 40 MG TAB PO (20:27)
[2018-06-06] MEDS: LEVEMIR (INSULIN DETEMIR) 1 UNITS/0.01ML SC (20:28)
[2018-06-07] MEDS: ALBUTEROL SULFATE 2.5 MG/0.5 ML INH NEB SOLN NEB ×4 (02:00→20:00)
[2018-06-07 05:39] LABS: INR 2.32; PROTHROMBIN TIME 25.9 SECONDS (12.1-14.4)
[2018-06-07 05:43] LABS: C REACTIVE PROTEIN QUANTITATIV 5.74 MG/DL (0.00-0.30)
[2018-06-07] MEDS: SLF 3 ML SYR IV ×3 (06:00→20:44)
[2018-06-07] MEDS: LEVOTHYROXINE 125MCG TABLET (0.125MG) PO (06:23)
[2018-06-07] MEDS: SYMBICORT 80/4.5MCG INHALER 6GM INH ×2 (07:01→20:22)
[2018-06-07 08:45] LABS: HEMATOCRIT 41.5 % (42.0-52.0); HEMOGLOBIN 12.6 g/dl (13.5-17.5); MEAN CORPUSCULAR HEMOGLOBIN 27.4 pg (27.0-33.0); MEAN CORPUSCULAR HGB CONC 30.4 g/dl (32.0-36.5); MEAN CORPUSCULAR VOLUME 90.2 fl (80.0-96.0); PLATELET COUNT, AUTOMATED 115 10^3/uL (150-450); RED CELL DISTRIBUTION WIDTH 17.7 % (11.5-14.5); WHITE BLOOD COUNT 19.3 10^3/uL (4.0-10.0)
[2018-06-07 08:47] LABS: ANION GAP 7 MEQ/L (8-16); BLOOD UREA NITROGEN 46 MG/DL (7-18); CARBON DIOXIDE LEVEL 35 MEQ/L (21-32); CHLORIDE LEVEL 99 MEQ/L (98-107); CREATININE FOR GFR 1.41 MG/DL (0.70-1.30); GLOMERULAR FILTRATION RATE 51.6 (>42); GLUCOSE, FASTING 224 MG/DL (70-100); POTASSIUM SERUM 4.1 MEQ/L (3.5-5.1); SODIUM LEVEL 141 MEQ/L (136-145)
[2018-06-07] MEDS: SENOKOT S TAB PO ×2 (09:19→20:45)
[2018-06-07] MEDS: ALLOPURINOL 300 MG TAB PO (09:19)
[2018-06-07] MEDS: OMEPRAZOLE 20 MG CAP PO (09:19)
[2018-06-07] MEDS: ENTRESTO 24-26MG TABLET (SACUBITRIL/VALSARTAN) PO ×2 (09:19→20:42)
[2018-06-07] MEDS: HumaLOG INSULIN (NovoLOG) PER UNIT SC ×4 (09:19→20:43)
[2018-06-07] MEDS: BISOPROLOL FUM 2.5 MG PER 1/2TAB PO (09:20)
[2018-06-07 11:44] LABS: BEDSIDE GLUCOSE 299 MG/DL (83-110)
[2018-06-07 16:43] LABS: BEDSIDE GLUCOSE 293 MG/DL (83-110)
[2018-06-07] MEDS: WARFARIN SOD 2 MG TAB PO (17:52)
[2018-06-07 20:28] LABS: BEDSIDE GLUCOSE 270 MG/DL (83-110)
[2018-06-07] MEDS: SIMVASTATIN 40 MG TAB PO (20:42)
[2018-06-07] MEDS: LEVEMIR (INSULIN DETEMIR) 1 UNITS/0.01ML SC (20:43)
[2018-06-08] MEDS: ALBUTEROL SULFATE 2.5 MG/0.5 ML INH NEB SOLN NEB ×3 (02:00→13:15)
[2018-06-08 05:48] LABS: HEMATOCRIT 41.2 % (42.0-52.0); HEMOGLOBIN 12.6 g/dl (13.5-17.5); MEAN CORPUSCULAR HEMOGLOBIN 27.6 pg (27.0-33.0); MEAN CORPUSCULAR HGB CONC 30.6 g/dl (32.0-36.5); MEAN CORPUSCULAR VOLUME 90.2 fl (80.0-96.0); PLATELET COUNT, AUTOMATED 101 10^3/uL (150-450); RED BLOOD COUNT 4.57 10^6/uL (4.30-6.10); RED CELL DISTRIBUTION WIDTH 17.8 % (11.5-14.5)
[2018-06-08] MEDS: SLF 3 ML SYR IV ×2 (06:00→14:00)
[2018-06-08 06:04] LABS: ANION GAP 6 MEQ/L (8-16); BLOOD UREA NITROGEN 45 MG/DL (7-18); CALCIUM LEVEL 8.3 MG/DL (8.8-10.2); CARBON DIOXIDE LEVEL 35 MEQ/L (21-32); CHLORIDE LEVEL 100 MEQ/L (98-107); CREATININE FOR GFR 1.53 MG/DL (0.70-1.30); GLUCOSE, FASTING 253 MG/DL (70-100); POTASSIUM SERUM 4.4 MEQ/L (3.5-5.1); SODIUM LEVEL 141 MEQ/L (136-145)
[2018-06-08] MEDS: LEVOTHYROXINE 125MCG TABLET (0.125MG) PO (06:45)
[2018-06-08] MEDS: SYMBICORT 80/4.5MCG INHALER 6GM INH (08:21)
[2018-06-08 08:48] LABS: INR 1.97; PROTHROMBIN TIME 22.8 SECONDS (12.1-14.4)
[2018-06-08] MEDS: BISOPROLOL FUM 2.5 MG PER 1/2TAB PO (09:29)
[2018-06-08] MEDS: OMEPRAZOLE 20 MG CAP PO (09:30)
[2018-06-08] MEDS: ALLOPURINOL 300 MG TAB PO (09:30)
[2018-06-08] MEDS: SENOKOT S TAB PO (09:31)
[2018-06-08] MEDS: ENTRESTO 24-26MG TABLET (SACUBITRIL/VALSARTAN) PO (09:31)
[2018-06-08] MEDS: HumaLOG INSULIN (NovoLOG) PER UNIT SC ×2 (09:32→12:32)
[2018-06-08 12:08] LABS: BEDSIDE GLUCOSE 275 MG/DL (83-110)
== END 2018-06-08 14:53 | disposition home health service (06) | DRG 291 ==
LOC: M ED 11:05 → M PCU 14:12
DX: I13.0 Hypertensive heart and chronic kidney disease with heart failure and stage 1 through stage 4 chronic kidney disease, or unspecified chronic kidney disease (principal); I50.43 Acute on chronic combined systolic (congestive) and diastolic (congestive) heart failure; J96.91 Respiratory failure, unspecified with hypoxia; J90 Pleural effusion, not elsewhere classified; J44.1 Chronic obstructive pulmonary disease with (acute) exacerbation; M10.9 Gout, unspecified; E78.5 Hyperlipidemia, unspecified; E03.9 Hypothyroidism, unspecified; E11.22 Type 2 diabetes mellitus with diabetic chronic kidney disease; N18.3 Chronic kidney disease, stage 3 (moderate); K21.9 Gastro-esophageal reflux disease without esophagitis; Z66 Do not resuscitate; D72.829 Elevated white blood cell count, unspecified; H91.93 Unspecified hearing loss, bilateral; K59.00 Constipation, unspecified; M54.9 Dorsalgia, unspecified; Z86.718 Personal history of other venous thrombosis and embolism; Z79.01 Long term (current) use of anticoagulants; Z95.828 Presence of other vascular implants and grafts; Z96.651 Presence of right artificial knee joint; Z87.891 Personal history of nicotine dependence; Z79.4 Long term (current) use of insulin; Z79.899 Other long term (current) drug therapy; I34.0 Nonrheumatic mitral (valve) insufficiency; I25.10 Atherosclerotic heart disease of native coronary artery without angina pectoris; I27.81 Cor pulmonale (chronic); Z86.711 Personal history of pulmonary embolism; I44.4 Left anterior fascicular block; I42.0 Dilated cardiomyopathy